=== PATIENT | male | born 1945 ===

== ENCOUNTER 2018-04-19 07:16 | Day surgery (SDC) | payer MEDICARE ==
[~2018-04-19] VITALS: Ht 172.7 cm; Wt 103.6 kg
[~2018-04-19 07:16] MED LIST: ALBU2.5V5 NEB; ASPI81CH PO; B Complex #11 EACH; CHOL10002; Depo-Testo100 MG/1 M IM; EPIPEN0.3 MG/0.3 IM; EYE HEALTH ADU1 EACH PO; LISI20 PO; MIRALAX17 GM PO; MULTI VITAMIN1 EACH PO; Multivitamin1 EAC1 PO; OCUVITE ADULT1 EACH PO; OXYB5; OXYB5 PO; POLY500; SACC250C; TRAZ50; TRAZ50 PO; VITAMIN D3400 UNIT
== END 2018-04-19 23:01 | disposition home or self-care (01) ==
LOC: MHTC 07:16
PROC: 065Q3ZZ Destruction of Left Saphenous Vein, Percutaneous Approach (ICD-10-PCS; principal; 2018-04-19)
DX: I87.2 Venous insufficiency (chronic) (peripheral) (principal); I10 Essential (primary) hypertension; G47.33 Obstructive sleep apnea (adult) (pediatric); E78.5 Hyperlipidemia, unspecified; M16.11 Unilateral primary osteoarthritis, right hip; J98.8 Other specified respiratory disorders; Z87.891 Personal history of nicotine dependence; Z88.5 Allergy status to narcotic agent; Z88.8 Allergy status to other drugs, medicaments and biological substances; Z91.030 Bee allergy status; R91.8 Other nonspecific abnormal finding of lung field; Z86.12 Personal history of poliomyelitis; Z79.899 Other long term (current) drug therapy
CPT/HCPCS: 36475; C1769; C1888; C1894; J1644; J2250; J3010; J7040

== ENCOUNTER 2019-03-07 08:32 | Day surgery (SDC) | payer MEDICARE ==
[~2019-03-07] VITALS: Ht 175.3 cm; Wt 104.0 kg
[~2019-03-07 08:32] MED LIST changes: +ALBU90OI61 INH
--- NOTE | 2019-03-07 11:20 | NUR ---
03/07/19 1120 Dangelo Abdullahi S LATE ENTRY-1015 PATIENT ROLLED ON BACK TO TRY TO GET TO THE CECUM. DR COULD NOT REACH CECUM AND PATIENT 02 DROPPED TO 89% SO 02 TURNED UP TO 5LNC AND ROLLED PATIENT BACK ON LEFT SIDE. PATIENTS O2 CAME BACK UP TO 96% AND PATIENT ROLLED ONTO BACK AGAIN AND THEN DOCTOR WAS ABLE TO REACH CECUM WITH ABDOMINAL PRESSURE THEN PATIENT ROLLED BACK ON LEFT SIDE.
== END 2019-03-07 11:11 | disposition home or self-care (01) ==
LOC: ORSCSDS 08:32
PROVIDERS: Internal Medicine Gastroenterology
PROC: 0DBL8ZX Excision of Transverse Colon, Via Natural or Artificial Opening Endoscopic, Diagnostic (ICD-10-PCS; principal; 2019-03-07 09:45)
PROC: 0DBM8ZX Excision of Descending Colon, Via Natural or Artificial Opening Endoscopic, Diagnostic (ICD-10-PCS; principal; 2019-03-07 09:45)
DX: R19.5 Other fecal abnormalities (principal); D12.4 Benign neoplasm of descending colon; D12.3 Benign neoplasm of transverse colon; Z86.010 Personal history of colon polyps; K57.30 Diverticulosis of large intestine without perforation or abscess without bleeding; I10 Essential (primary) hypertension; J45.909 Unspecified asthma, uncomplicated; Z87.891 Personal history of nicotine dependence; Z79.899 Other long term (current) drug therapy
CPT/HCPCS: 88305; J2704; J7120

== ENCOUNTER → 2019-09-12 | Outpatient (CLI) | payer MEDICARE ==
[2019-09-13 14:17] LABS: Stool Occult Bld Immuno 1 Negative (NEGATIVE); Stool Occult Bld Immuno 2 Negative (NEGATIVE)
== END | disposition home or self-care (01) ==
LOC: LAB 09:54 → LAB SHORT 09:54 → LAB FUT 06-18 09:35
PROVIDERS: Internal Medicine Gastroenterology
DX: R19.5 Other fecal abnormalities (principal); K57.30 Diverticulosis of large intestine without perforation or abscess without bleeding; Z86.010 Personal history of colon polyps
CPT/HCPCS: 82274

== ENCOUNTER → 2021-01-05 | Outpatient (CLI) | payer MEDICARE ==
[2021-01-07 10:20] LABS: Stool Occult Bld Immuno 1 Negative (NEGATIVE)
== END | disposition home or self-care (01) ==
LOC: LAB 08:30 → LAB SHORT 08:30
PROVIDERS: Internal Medicine Nephrology
DX: N18.30 Chronic kidney disease, stage 3 unspecified (principal); D63.1 Anemia in chronic kidney disease; R73.09 Other abnormal glucose; N25.81 Secondary hyperparathyroidism of renal origin; E55.9 Vitamin D deficiency, unspecified; E78.00 Pure hypercholesterolemia, unspecified; R76.9 Abnormal immunological finding in serum, unspecified; R94.5 Abnormal results of liver function studies; R94.6 Abnormal results of thyroid function studies; D51.8 Other vitamin B12 deficiency anemias; D52.8 Other folate deficiency anemias; D50.9 Iron deficiency anemia, unspecified
CPT/HCPCS: G0328

== ENCOUNTER → 2021-01-06 | Outpatient (CLI) | payer MEDICARE ==
[2021-01-06 19:40] LABS: Creatinine Urine 67.6 mg/dL (27.00-270.00); Protein, Urine Quantitative 7.4 mg/dL (0.0-11.9)
[2021-01-06 19:43] LABS: Microalbumin, Urine Quant. 10.5 mg/L (0.000-20.000)
== END | disposition home or self-care (01) ==
LOC: LAB 14:46 → LAB SHORT 14:46
PROVIDERS: Internal Medicine Nephrology
DX: N18.30 Chronic kidney disease, stage 3 unspecified (principal); D63.1 Anemia in chronic kidney disease; R73.09 Other abnormal glucose; N25.81 Secondary hyperparathyroidism of renal origin; E55.9 Vitamin D deficiency, unspecified; E78.00 Pure hypercholesterolemia, unspecified; R76.9 Abnormal immunological finding in serum, unspecified; R94.5 Abnormal results of liver function studies; R94.6 Abnormal results of thyroid function studies; D51.8 Other vitamin B12 deficiency anemias; D52.8 Other folate deficiency anemias; D50.9 Iron deficiency anemia, unspecified
CPT/HCPCS: 81050; 82043; 82570; 84156

== ENCOUNTER 2022-03-09 06:40 | Day surgery (SDC) | payer MEDICARE ==
[~2022-03-09] VITALS: Ht 170.2 cm; Wt 103.9 kg
[~2022-03-09 06:40] MED LIST changes: -CHOL10002; +HYDR1TAB94 PO; +MELO7.5 PO; -POLY500; +POLY500 PO; -TRAZ50; +Triamcinolone A15 G3 TOP; +VITAMIN D310 MC4 PO; +Vitamin B Comple1 EA PO
--- NOTE | 2022-03-09 08:28 | NUR ---
Ambulatory in Day Surgery THIS AM. History, Chart, Medications and Allergies reviewed before start of procedure.Lungs clear T/O to Auscultation. Patient confirms NPO status and agrees with scheduled surgery. Pre-Op teaching done. Pt verbalizes understanding.
--- NOTE | 2022-03-09 12:05 | NUR ---
PT ARRIVED FROM PACU AT APPROXIMATELY 1200. PT ALERT AND ORIENTED AT TIME OF ARRIVAL. DRESSING TO R HIP C/D/I. PT DENIED PAIN. PT DENIED N/T TO BLE, HOWEVER HE STATED HIS LEGS FELT LIKE "LEAD WEIGHTS" AND WAS HAVING DIFFICULTY LIFTING THEM OFF THE BED. PT EDUCATED ABOUT THE TIME IT TAKES FOR SPINAL ANESTHESIA TO WEAR OFF. PT'S S/O AT THE BEDSIDE FOR SUPPORT.
--- NOTE | 2022-03-09 12:15 | NUR ---
TORADOL PRE-OP LABS SHOW CREATININE ELEVATED AT 1.22 AND GFR DECREASED AT 59. PT HAS TORADOL ORDERED FOR PAIN MANAGEMENT. SPOKE WITH CHATO IN PHARMACY REGARDING CONCERNS ABOUT GIVING TORADOL, SHE STATED OK TO GIVE TORADOL 15MG DOSE BASED ON THOSE VALUES AND PT'S AGE. DISCUSSED CONCERNS WITH THE PATIENT, HE REPORTED OK TO GIVE TORADOL. HE ALSO STATES HE WAS TAKING MOBIC PRIOR TO SURGERY AND TOLERATING WELL.
--- NOTE | 2022-03-09 18:02 | NUR ---
SHIFT SUMMARY PT IS POD#0 FROM R [facility] WITH DR. RAM. PAIN HAS BEEN MANAGED WITH OXY, TYLENOL AND TORADOL POST-OP. PT WORKED WITH CHATO FROM PHYSICAL THERAPY AND HAS SAT UP TO THE CHAIR WITH HIS LEGS ELEVATED. PT IS TOLERATING PO. HE HAS BEEN ABLE TO VOID. BP HAS IMPROVED SINCE ARRIVAL TO THE ROOM. ANTICIPATE DISCHARGE TOMORROW AFTER PHYSICAL THERAPY.
[2022-03-10 04:33] LABS: BASOPHILS ABSOLUTE AUTO 0.02 K/mm3 (0.00-0.23); BASOPHILS PERCENT AUTO 0 % (0-2); EOSINOPHILS PERCENT AUTO 0 % (0-6); Hematocrit 32.5 % (37.0-53.0); Hemoglobin 10.7 g/dL (13.5-17.5); IMMATURE GRAN ABSOLUTE AUTO 0.05 K/mm3 (0.00-0.10); IMMATURE GRAN PERCENT AUTO 0 % (0-1); LYMPHOCYTES ABSOLUTE AUTO 0.74 K/mm3 (0.84-5.20); LYMPHOCYTES PERCENT AUTO 5 % (21-46); MONOCYTES ABSOLUTE AUTO 1.31 K/mm3 (0.16-1.47); MONOCYTES PERCENT AUTO 9 % (4-13); Mean Corpuscular HGB 30.2 pg (26.0-34.0); Mean Corpuscular HGB Conc 32.9 g/dL (31.5-36.5); Mean Corpuscular Volume 92 fL (80-100); Mean Platelet Volume 9.2 fL (9.1-12.4); NEUTROPHILS ABSOLUTE AUTO 13.26 K/mm3 (1.96-9.15); NEUTROPHILS PERCENT AUTO 86 % (41-73); Platelet Count 210 K/mm3 (150-400); RDW Coefficient Variation 12.8 % (11.7-14.2); RDW Standard Deviation 43.2 fL (35.1-46.3); Red Blood Cell Count 3.54 M/mm3 (4.30-5.90); White Blood Cell Count 15.38 K/mm3 (4.00-11.30)
[2022-03-10 04:47] LABS: Bun/Creatinine Ratio 22.2 (12.0-20.0); Calcium, Blood 8.4 mg/dL (8.5-10.1); Creatinine, Blood 1.35 mg/dL (0.60-1.20); Potassium, Blood 4.8 mmol/L (3.5-5.5)
--- NOTE | 2022-03-10 05:06 | NUR ---
SHIFT SUMMARY A/O X4- POD1 L TOTAL HIP- AQUACEL DRESSING C/D/I. AMBULATING WELL W/ SBA, FWW, AND GB. PAIN MANAGED W/ PO PAIN MEDICATIONS PER EMAR. TOLERATING PO INTAKE AND VOIDING WELL. VITAL SIGNS STABLE. PLEASANT AND COOPERATIVE THROUGHOUT SHIFT, WILL CONTINUE TO MONITOR AND REPORT TO ONCOMING RN.
[2022-03-10] MEDS ORDERED: Percocet 5-3251 EACH PO (08:11)
[2022-03-10] MEDS ORDERED: ELIQUIS2.5 MG PO (08:11)
--- NOTE | 2022-03-10 11:45 | NUR ---
DISCHARGE SUMMARY POD1 R MICHAEL, A/O X4, VSS, TOLERATING PO, PAIN WELL MANAGED, AMBULATING c FWW/GB AND SBA, VOIDING WELL. DISCUSSED DISCHARGE INFORMATION WITH THE PATIENT AND HIS INCLUDING HOME MEDICATIONS, HOME CARE, DRESSING CHANGES, INCISION CARE, PAIN MANAGEMENT, AND FOLLOW UP APPOINTMENTS. REMOVED IV ACCESS AND NO OTHER DEVICES IN PLACE. PT ESCORTED OUT VIA WC TO PRIVATE AUTO TO GO HOME.
--- NOTE | 2022-03-11 15:42 | NUR ---
03/11/22 1542 Izabella Vaughan VERIFICATIONS: EDIT CHART.
== END 2022-03-10 10:55 | disposition home or self-care (01) ==
LOC: ORSCMMR 06:40 → ORD 10:00 → ORSCMMR 10:00 → SURS 12:06 → ORSCMMR 03-10 10:55
PROVIDERS: Orthopaedic Surgery
PROC: 0SR90JZ Replacement of Right Hip Joint with Synthetic Substitute, Open Approach (ICD-10-PCS; principal; 2022-03-09 08:15)
DX: M16.11 Unilateral primary osteoarthritis, right hip (principal); Z87.891 Personal history of nicotine dependence; I10 Essential (primary) hypertension; G47.33 Obstructive sleep apnea (adult) (pediatric); J45.909 Unspecified asthma, uncomplicated; E66.9 Obesity, unspecified; Z68.35 Body mass index [BMI] 35.0-35.9, adult; Z79.899 Other long term (current) drug therapy
CPT/HCPCS: 36415; 72170; 80048; 85025; 97110; 97116; 97162; 97530; A9270; C1776; J0171; J0690; J0735; J1100; J1885; J2250; J2370; J2405; J2704; J2795; J3010; J7120

== ENCOUNTER → 2024-03-14 | Outpatient (CLI) | payer OTHER ==
[~2024-03-14] MED LIST changes: +ELIQUIS2.5 MG PO; +Percocet 5-3251 EACH PO
[2024-03-19 13:36] LABS: 6-ACETYLMORPHINE, URN, QUANT <10 ng/mL; CODEINE, URN, QUANT <20 ng/mL; HYDROCODONE, URN, QUANT 385 ng/mL; HYDROMORPHONE, URN, QUANT 37 ng/mL; MORPHINE, URN, QUANT <20 ng/mL; NORHYDROCODONE, URN, QUANT 440 ng/mL; NOROXYCODONE, URN, QUANT <20 ng/mL; NOROXYMORPHONE, URN, QUANT <20 ng/mL; OXYCODONE, URN, QUANT <20 ng/mL; OXYMORPHONE, URN, QUANT <20 ng/mL
== END ==
LOC: LAB SHORT 17:48 → LAB 17:48
PROVIDERS: Family Medicine
DX: Z51.81 Encounter for therapeutic drug level monitoring (principal); Z79.899 Other long term (current) drug therapy
CPT/HCPCS: G0480

== ENCOUNTER 2024-04-19 09:57 | Day surgery (SDC) | payer OTHER ==
[~2024-04-19] VITALS: Ht 170.2 cm; Wt 100.0 kg
[~2024-04-19 09:57] MED LIST changes: +Balanced Salt Epinephrine Irrigation Solution 500 mL IR SCH; +Lidocaine HCl/Pf 1% 5 ML VIAL ONE; +Lidocaine HCl/Pf 1% 5 ML VIAL XX SCH; +Midazolam HCl 1MG / ML 2ML Vial ONE; +Moxifloxacin HCL 0.5 MG/0.1 ML 0.4MLSYR LEFTEYE SCH; +NS 500 ML IV ONE; +PHENYLEPHRINE\\TROPICAMIDE\\TETRACAINE OPHTHALMIC DILATING SOLN LEFTEYE PRN; +Povidone-Iodine 450 DROP/30 ML Solution LEFTEYE SCH; +Triamcinolone Inj Susp 40 MG / ML 1ML Vial INJ SCH; +Triamcinolone Inj Susp 40 MG / ML 1ML Vial ONE
[2024-04-19] MEDS ORDERED: NS 500 ML IV ONE (10:18)
[2024-04-19] MEDS ORDERED: Norco 5-325 Ta1 EACH PO (10:25)
[2024-04-19 11:44] VITALS: BP 145/69
== END 2024-04-19 11:44 | disposition home or self-care (01) ==
LOC: ORSCSDS 09:57
PROVIDERS: Ophthalmology
PROC: 08RK3JZ Replacement of Left Lens with Synthetic Substitute, Percutaneous Approach (ICD-10-PCS; principal; 2024-04-19 11:00)
DX: H25.813 Combined forms of age-related cataract, bilateral (principal); I10 Essential (primary) hypertension; I42.0 Dilated cardiomyopathy; E78.00 Pure hypercholesterolemia, unspecified; J44.9 Chronic obstructive pulmonary disease, unspecified; G47.33 Obstructive sleep apnea (adult) (pediatric); Z87.891 Personal history of nicotine dependence; Z79.899 Other long term (current) drug therapy
CPT/HCPCS: J2001; J2250; J3301; J7040; V2632

== ENCOUNTER 2024-04-26 09:51 | Day surgery (SDC) | payer OTHER ==
[~2024-04-26] VITALS: Ht 170.2 cm; Wt 99.1 kg
[~2024-04-26 09:51] MED LIST changes: -Lidocaine HCl/Pf 1% 5 ML VIAL ONE; -Midazolam HCl 1MG / ML 2ML Vial ONE; -Moxifloxacin HCL 0.5 MG/0.1 ML 0.4MLSYR LEFTEYE SCH; +Moxifloxacin HCL 0.5 MG/0.1 ML 0.4MLSYR RIGHTEYE SCH; +Norco 5-325 Ta1 EACH PO; -PHENYLEPHRINE\\TROPICAMIDE\\TETRACAINE OPHTHALMIC DILATING SOLN LEFTEYE PRN; +PHENYLEPHRINE\\TROPICAMIDE\\TETRACAINE OPHTHALMIC DILATING SOLN RIGHTEYE PRN; -Povidone-Iodine 450 DROP/30 ML Solution LEFTEYE SCH; +Povidone-Iodine 450 DROP/30 ML Solution RIGHTEYE SCH
[2024-04-26] MEDS ORDERED: Lactated Ringer's 1,000 ML IV ONE (10:00)
[2024-04-26] MEDS ORDERED: Midazolam HCl 1MG / ML 2ML Vial ONE (10:38)
[2024-04-26 11:07] VITALS: BP 104/63
== END 2024-04-26 11:18 | disposition home or self-care (01) ==
LOC: ORSCSDS 09:51
PROVIDERS: Ophthalmology
PROC: 08RJ3JZ Replacement of Right Lens with Synthetic Substitute, Percutaneous Approach (ICD-10-PCS; principal; 2024-04-26 11:00)
DX: H25.811 Combined forms of age-related cataract, right eye (principal); Z96.1 Presence of intraocular lens; H02.401 Unspecified ptosis of right eyelid; I10 Essential (primary) hypertension; E78.5 Hyperlipidemia, unspecified; Z87.891 Personal history of nicotine dependence; Z79.82 Long term (current) use of aspirin; Z79.899 Other long term (current) drug therapy
CPT/HCPCS: J2250; J3301; J7040; J7120; V2632